=== PATIENT | male | born 1990 | race Caucasian/White ===

== ENCOUNTER 2022-07-07 20:21 | Emergency (ER) | payer OTHER ==
[2022-07-07 20:24] VITALS: BP 163/100
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
== END 2022-07-07 20:25 | disposition home or self-care (01) ==
LOC: ED 20:21
DX: Z02.89 Encounter for other administrative examinations (principal); F10.129 Alcohol abuse with intoxication, unspecified
CPT/HCPCS: 99281; 99282